=== PATIENT | female | born 1985 | race Caucasian/White ===

== ENCOUNTER 2019-07-03 15:24 | Emergency (ER) | payer MEDICAID ==
[~2019-07-03] VITALS: Ht 172.7 cm; Wt 169.7 kg
[2019-07-03] MEDS ORDERED: PREDNISONE50 MG PO (17:20)
[2019-07-03] MEDS ORDERED: FLEXERIL PO (17:20)
[2019-07-03] MEDS ORDERED: NORCO 5-325 TA1 EAC1 PO (17:20)
[2019-07-03 17:29] VITALS: BP 124/77
== END 2019-07-03 17:29 | disposition home or self-care (01) ==
LOC: M.ERS 15:24
DX: M54.41 Lumbago with sciatica, right side (principal); Z88.1 Allergy status to other antibiotic agents; Z88.5 Allergy status to narcotic agent; Z91.041 Radiographic dye allergy status; Z91.040 Latex allergy status; Z88.6 Allergy status to analgesic agent; Z91.013 Allergy to seafood